=== PATIENT | female | born 1960 | race Caucasian/White ===

== ENCOUNTER 2018-08-22 09:40 | Outpatient (CLI) | payer BC | END 2018-08-22 09:41 | disposition home or self-care (01) | LOC: CONVCARE 09:40 | PROVIDERS: ATTEND Orthopaedic Surgery | DX: S92.352D Displaced fracture of fifth metatarsal bone, left foot, subsequent encounter for fracture with routine healing (principal) | CPT/HCPCS: 73630 ==

== ENCOUNTER 2018-09-26 07:43 | Outpatient (CLI) | payer BC | END 2018-09-26 07:44 | disposition home or self-care (01) | LOC: CONVCARE 07:43 | PROVIDERS: ATTEND Orthopaedic Surgery | DX: S92.352D Displaced fracture of fifth metatarsal bone, left foot, subsequent encounter for fracture with routine healing (principal) | CPT/HCPCS: 73630 ==

== ENCOUNTER 2018-10-31 07:47 | Outpatient (CLI) | payer BC | END 2018-10-31 07:48 | disposition home or self-care (01) | LOC: CONVCARE 07:47 ==